=== PATIENT | male | born 2000 | race Hispanic/Latino ===

== ENCOUNTER 2023-11-26 13:24 | Emergency (ER) | payer BC, MEDICAID ==
[~2023-11-26] VITALS: Ht 177.8 cm; Wt 104.3 kg
[2023-11-26 14:29] LABS: BASOPHILS # (AUTO) 0.05 K/uL (0.00-0.20); BASOPHILS % (AUTO) 0.4 % (0.0-5.0); EOSINOPHILS # (AUTO) 0.01 K/uL (0.00-0.70); EOSINOPHILS % (AUTO) 0.1 % (0.0-8.0); HEMATOCRIT 45.7 % (42-54); IMMATURE GRANULOCYTE ABSOLUTE 0.08 K/uL (0-1); LYMPHOCYTES # (AUTO) 1.3 K/uL (1.0-4.8); LYMPHOCYTES % (AUTO) 9.1 % (21.0-51.0); MEAN CORPUSCULAR HEMOGLOBIN 31.4 pg (27.0-33.0); MEAN CORPUSCULAR HGB CONC 35.7 g/dL (32.0-36.0); MEAN CORPUSCULAR VOLUME 88.1 fL (79-99); MONOCYTES % (AUTO) 6.8 % (3.0-13.0); NEUTROPHILS # (AUTO) 11.8 K/uL (1.8-7.7); PLATELET COUNT (AUTO) 218 K/uL (130-400); RED BLOOD CELL COUNT(AUTO) 5.19 MIL/uL (4.50-6.20); RED CELL DISTRIBUTION WIDTH 12.1 % (11.0-15.5); WHITE BLOOD COUNT (AUTO) 14.2 K/uL (4.8-10.8)
[2023-11-26 14:47] LABS: CREATININE 0.9 mg/dL (0.5-1.5); POTASSIUM 3.8 mmol/L (3.5-5.1)
[2023-11-26] MEDS ORDERED: LEVETIRACETAM 500 MG/5 ML SD VIAL IV SCH (15:00)
[2023-11-26] MEDS ORDERED: OCTYL 2-CYANOACRYLATE 1 EACH TP ONE (16:55)
[2023-11-26] MEDS ORDERED: LIDOCAINE HCL 1% 20 ML VIAL ONE (17:05)
[2023-11-26 17:45] VITALS: BP 132/65; PULSE 74; RESP 16; O2SAT 98
== END 2023-11-26 17:48 | disposition home or self-care (01) ==
LOC: EDH 13:24
DX: S01.312A Laceration without foreign body of left ear, initial encounter (principal); G40.909 Epilepsy, unspecified, not intractable, without status epilepticus; X58.XXXA Exposure to other specified factors, initial encounter; Y93.89 Activity, other specified; Y92.89 Other specified places as the place of occurrence of the external cause; Y99.8 Other external cause status
CPT/HCPCS: 99284; 70450; 96365; 80048; 85025; 36415; 72125; 12011; J1953